=== PATIENT | female | born 1980 | race Caucasian/White ===

== ENCOUNTER → 2020-03-10 08:21 | Outpatient (CLI) | payer OTHER | END | disposition home or self-care (01) | LOC: D.CT 08:21 | PROVIDERS: ATTEND Internal Medicine Gastroenterology | DX: R10.84 Generalized abdominal pain (principal); R14.0 Abdominal distension (gaseous); R11.2 Nausea with vomiting, unspecified; R63.5 Abnormal weight gain ==